=== PATIENT | female | born 1945 | race Caucasian/White ===

== ENCOUNTER 2021-08-30 10:03 | Outpatient (CLI) | payer MEDICARE, BC | END 2021-08-30 10:04 | disposition home or self-care (01) | LOC: CSHCT 10:03 | PROVIDERS: ATTEND Orthopaedic Surgery | DX: M25.432 Effusion, left wrist (principal); M18.12 Unilateral primary osteoarthritis of first carpometacarpal joint, left hand; M79.89 Other specified soft tissue disorders | CPT/HCPCS: 82565 ==

== ENCOUNTER 2022-08-21 13:45 | Outpatient (CLI) | payer MEDICARE, BC | END 2022-08-21 13:46 | disposition home or self-care (01) | LOC: CSHMRI 13:45 | PROVIDERS: ATTEND Anesthesiology Pain Medicine | DX: M48.062 Spinal stenosis, lumbar region with neurogenic claudication (principal); M47.816 Spondylosis without myelopathy or radiculopathy, lumbar region; M47.817 Spondylosis without myelopathy or radiculopathy, lumbosacral region; M51.36 Other intervertebral disc degeneration, lumbar region; M51.37 Other intervertebral disc degeneration, lumbosacral region | CPT/HCPCS: 72148 ==

== ENCOUNTER 2023-04-30 16:45 | Inpatient (IN) | payer MEDICARE, BC ==
[~2023-04-30 16:45] MED LIST: Iopamidol 370 76% 100 ML VIAL ONE
[2023-04-30 17:33] LABS: Bilirubin Neg (Negative); Blood, Urine 25 (Negative); Clarity Slightly Cloudy (Clear); Glucose, Urine (Dipstick) Normal (Negative); Ketone, Urine Negative (Negative); Leukocyte 500 (Negative); Nitrite Negative (Negative); Protein, Urine (Dipstick) 30 mg/dl (Neg-Trace); Urobilinogen Normal mg/dL (Less than 2); pH, Urine 6.5 (5.0-9.0)
[2023-04-30] MEDS ORDERED: Acetaminophen 500 MG TAB ONE (17:33)
[2023-04-30] MEDS ORDERED: cefTRIAXone (ROCEPHIN) 2 GM VIAL ONE (17:34)
[2023-04-30] MEDS ORDERED: Azithromycin 500 MG VIAL ONE (17:34)
[2023-04-30 17:44] LABS: Bacteria/HPF 3+ HPF (None Seen); CAUTI Indications for Culture Fever or rigors; RBC/HPF 0-3 HPF (0-3); Squamous Epithelial 0-3 HPF (0-3); WBC/HPF 21-50 HPF (0-3)
[2023-04-30 17:46] LABS: Urine Culture Reflex Yes Yes
[2023-04-30 17:49] LABS: ALT (SGPT) 17 U/L (8-55); AST (SGOT) 19 U/L (5-34); Alkaline Phosphatase 87 U/L (40-110); Anion Gap 18 mmol/L (10-20); BUN (Urea Nitrogen) 13 mg/dL (9.8-20.1); Bilirubin, Total 0.7 mg/dL (0.2-1.2); Calc. Creatinine Clearance 0 mL/min (70-130); Calcium 10.2 mg/dL (7.8-10.44); Carbon Dioxide 23 mmol/L (23-31); Chloride 95 mmol/L (98-107); Estimated GFR 61; Globulin 2.8 g/dL (2.4-3.5); Glucose 128 mg/dL (83-110); Magnesium 1.6 mg/dL (1.6-2.6); Potassium 4.2 mmol/L (3.5-5.1); Protein, Total 6.8 g/dL (5.8-8.1); Sodium 132 mmol/L (136-145)
[2023-04-30 17:49] LABS: #Eosinphils 0.1 10x3/uL (0.0-0.5); #Monocytes 0.9 10x3/uL (0.0-1.1); #Neutrophils 11.5 10x3/uL (1.5-8.4); %Basophils 0.2 % (0.0-2.0); %Eosinophils 0.6 % (0.0-6.0); %Lymphocytes 5.5 % (18.0-47.0); Hemoglobin 12.8 g/dL (12.0-15.5); Mean Corpuscular HGB CONC 34.6 g/dL (32.0-36.0); Mean Corpuscular Hemoglobin 34.1 pg (27.0-33.0); Mean Corpuscular Volume 98.7 fl (81.6-98.3); Platelet Count 186 10x3/uL (150-450); RBC Distribution Width 11.6 % (11.5-14.5); Red Blood Cell (RBC) Count 3.75 10x6/uL (3.90-5.03); White Blood Cell (WBC) Count 12.9 10x3/uL (3.5-10.5)
[2023-04-30] MEDS ORDERED: Aspirin Chewable 81 MG TAB ONE (18:34)
[2023-04-30 18:55] LABS: SARS-CoV-2 NAA Rapid Test Not Detected (NotDetected)
[2023-04-30] MEDS ORDERED: HYDROcodone/Acetaminophen 5/325 mg Tablet PO PRN (19:12)
[2023-04-30] MEDS ORDERED: Calcium Carbonate 500 MG ChewTAB PO PRN (19:12)
[2023-04-30] MEDS ORDERED: Senokot S 8.6-50 MG TAB PO PRN (19:12)
[2023-04-30] MEDS ORDERED: Guaifenesin DM 100-10/5 ML UDCUP PO PRN (19:12)
[2023-04-30] MEDS ORDERED: Ondansetron PF 4 MG/2 ML Vial IVP PRN (19:12)
[2023-04-30] MEDS ORDERED: QUEtiapine 25 MG TAB ONE (21:32)
[2023-04-30] MEDS ORDERED: QUEtiapine 25 MG TAB PO SCH (22:00)
[2023-04-30] MEDS ORDERED: Simvastatin 10 MG TAB PO SCH (22:00)
[2023-04-30] MEDS ORDERED: Amitriptyline HCl 25 MG TAB PO SCH (22:00)
[2023-04-30] MEDS ORDERED: Pregabalin 25 MG CAP PO SCH (22:00)
[2023-04-30] MEDS ORDERED: Ventolin HFA Inhaler 60 PUFF INHALER INH PRN (22:07)
[2023-05-01] MEDS ORDERED: Lorazepam 2 MG/ML VIAL ONE (01:54)
[2023-05-01] MEDS ORDERED: Lorazepam 2 MG/ML VIAL SLOW IVP SCH ×2 (02:15→23:45)
[2023-05-01 04:13] LABS: #Monocytes 1.3 10x3/uL (0.0-1.1); #Neutrophils 13.4 10x3/uL (1.5-8.4); %Basophils 0.1 % (0.0-2.0); %Eosinophils 0.2 % (0.0-6.0); %Lymphocytes 6.2 % (18.0-47.0); %Neutrophils 84.7 % (40.0-75.0); Hemoglobin 11.6 g/dL (12.0-15.5); Mean Corpuscular HGB CONC 32.6 g/dL (32.0-36.0); Mean Corpuscular Hemoglobin 33.6 pg (27.0-33.0); Mean Corpuscular Volume 103.2 fl (81.6-98.3); Mean Platelet Volume 9.1 fl (7.4-10.4); Platelet Count 160 10x3/uL (150-450); RBC Distribution Width 11.7 % (11.5-14.5); Red Blood Cell (RBC) Count 3.45 10x6/uL (3.90-5.03); White Blood Cell (WBC) Count 15.9 10x3/uL (3.5-10.5)
[2023-05-01 04:28] LABS: Anion Gap 15 mmol/L (10-20); BUN (Urea Nitrogen) 13 mg/dL (9.8-20.1); Calc. Creatinine Clearance 84 mL/min (70-130); Carbon Dioxide 24 mmol/L (23-31); Chloride 98 mmol/L (98-107); Estimated GFR 60; Glucose 111 mg/dL (83-110); Potassium 4.5 mmol/L (3.5-5.1); Sodium 132 mmol/L (136-145)
[2023-05-01] MEDS ORDERED: Ziprasidone 20 MG VIAL ONE (05:46)
[2023-05-01] MEDS ORDERED: Sterile Water 10 ML ONE (05:48)
[2023-05-01] MEDS ORDERED: Ziprasidone 20 MG VIAL IM SCH (06:00)
[2023-05-01] MEDS: Mometasone/Formoterol 200/5 60 PUFF INH SCH ×2 (10:27→21:42)
[2023-05-01] MEDS: Pregabalin 25 MG CAP PO SCH ×2 (11:15→20:04)
[2023-05-01] MEDS: Acetaminophen 325 MG TAB PO PRN ×2 (11:16→22:16)
[2023-05-01] MEDS: QUEtiapine 25 MG TAB PO SCH ×2 (11:16→20:05)
[2023-05-01] MEDS: Montelukast Sodium 10 mg Tablet PO SCH (11:17)
[2023-05-01 12:08] LABS: ALV-art Gradient 26.595 mmHg (0-20); Actual Bicarbonate (HCO3a) 27.8 mEq/L (22-28); Base Excess (BEa) 2.2 mEq/L (-2.0 to +3.0); CO2 Tension 47.3 mmHg (35.0-45.0); Calcium, Ionized (arterial) 1.28 mmol/L (1.12-1.30); Carboxyhemoglobin (COHb) 0.4 gm% (0.0-3.0); Hematocrit-ABG 38 % (36.0-47.0); Hemoglobin (Hb) 12.9 g/dL (12.0-16.0); O2 Tension (PaO2), arterial 85.4 mmHg (> 60.0); Potassium - ABG Lab 4.14 mmol/L (3.70-5.30); Puncture Site RRA; pH, Arterial 7.387 (7.35-7.45)
[2023-05-01] MEDS: Atenolol 50 MG TAB PO SCH (16:00)
[2023-05-01] MEDS: cefTRIAXone\\ROCEPHIN 1 GM in Sodium Chloride 0.9% 100 ML IVPB SCH (17:10)
[2023-05-01] MEDS: Amitriptyline HCl 25 MG TAB PO SCH (20:05)
[2023-05-01] MEDS: Simvastatin 10 MG TAB PO SCH (20:05)
[2023-05-01] MEDS ORDERED: QUEtiapine 25 MG TAB PO SCH (21:00)
[2023-05-02] MEDS: Pregabalin 25 MG CAP PO SCH ×2 (09:01→20:58)
[2023-05-02] MEDS: QUEtiapine 25 MG TAB PO SCH ×2 (09:01→20:59)
[2023-05-02] MEDS: Atenolol 50 MG TAB PO SCH (09:01)
[2023-05-02] MEDS: Montelukast Sodium 10 mg Tablet PO SCH (09:01)
[2023-05-02] MEDS: Mometasone/Formoterol 200/5 60 PUFF INH SCH ×2 (10:50→19:24)
[2023-05-02] MEDS: cefTRIAXone\\ROCEPHIN 1 GM in Sodium Chloride 0.9% 100 ML IVPB SCH (16:57)
[2023-05-02] MEDS: Artificial Tear Sol 15 ML BOT EA EYE SCH ×2 (16:58→21:02)
[2023-05-02] MEDS: Simvastatin 10 MG TAB PO SCH (20:59)
[2023-05-02] MEDS: Amitriptyline HCl 25 MG TAB PO SCH (20:59)
[2023-05-03 05:54] LABS: #Eosinphils 0.1 10x3/uL (0.0-0.5); #Monocytes 0.8 10x3/uL (0.0-1.1); #Neutrophils 8.3 10x3/uL (1.5-8.4); %Basophils 0.4 % (0.0-2.0); %Lymphocytes 16.4 % (18.0-47.0); %Monocytes 7.5 % (0.0-10.0); Hemoglobin 11.6 g/dL (12.0-15.5); Mean Corpuscular HGB CONC 33.6 g/dL (32.0-36.0); Mean Corpuscular Hemoglobin 33.9 pg (27.0-33.0); Mean Corpuscular Volume 100.9 fl (81.6-98.3); Mean Platelet Volume 9.3 fl (7.4-10.4); Platelet Count 186 10x3/uL (150-450); RBC Distribution Width 11.5 % (11.5-14.5); Red Blood Cell (RBC) Count 3.42 10x6/uL (3.90-5.03); White Blood Cell (WBC) Count 11.2 10x3/uL (3.5-10.5)
[2023-05-03 06:07] LABS: Anion Gap 14 mmol/L (10-20); BUN (Urea Nitrogen) 11 mg/dL (9.8-20.1); Calc. Creatinine Clearance 107 mL/min (70-130); Calcium 9.8 mg/dL (7.8-10.44); Carbon Dioxide 25 mmol/L (23-31); Chloride 99 mmol/L (98-107); Estimated GFR 80; Glucose 89 mg/dL (83-110); Potassium 4.3 mmol/L (3.5-5.1); Sodium 134 mmol/L (136-145)
[2023-05-03] MEDS ORDERED: Folic Acid 1 MG TAB PO SCH (09:00)
[2023-05-03 10:00] VITALS: BP 173/81; TEMP 98.4
[2023-05-03] MEDS: Mometasone/Formoterol 200/5 60 PUFF INH SCH (10:10)
[2023-05-03] MEDS: Pregabalin 25 MG CAP PO SCH (10:26)
[2023-05-03] MEDS: Montelukast Sodium 10 mg Tablet PO SCH (10:26)
[2023-05-03] MEDS: Atenolol 50 MG TAB PO SCH (10:26)
[2023-05-03] MEDS: Artificial Tear Sol 15 ML BOT EA EYE SCH (10:35)
[2023-05-03] MEDS ORDERED: Sulfameth/Trimethoprim DS 800-160mg TAB PO SCH ×2 (11:00→21:00)
[2023-05-03] MEDS ORDERED: QUEtiapine 25 MG TAB PO SCH (21:00)
== END 2023-05-03 14:15 | DRG 871 ==
LOC: CSHERS 16:45 → CSHERHOLD 21:01 → CSHTELE 05-01 08:58
PROVIDERS: ADMIT Family Medicine; ATTEND Internal Medicine
PROC: 3E03329 Introduction of Other Anti-infective into Peripheral Vein, Percutaneous Approach (ICD-10-PCS; 2023-04-30)
PROC: 4A033R1 Measurement of Arterial Saturation, Peripheral, Percutaneous Approach (ICD-10-PCS; principal; 2023-05-01)
DX: A41.9 Sepsis, unspecified organism (principal); J96.01 Acute respiratory failure with hypoxia; Z68.42 Body mass index [BMI] 45.0-49.9, adult; E87.1 Hypo-osmolality and hyponatremia; N30.00 Acute cystitis without hematuria; E66.2 Morbid (severe) obesity with alveolar hypoventilation; J45.909 Unspecified asthma, uncomplicated; I10 Essential (primary) hypertension; F41.9 Anxiety disorder, unspecified; F32.A Depression, unspecified; G47.00 Insomnia, unspecified; Z96.619 Presence of unspecified artificial shoulder joint; M48.061 Spinal stenosis, lumbar region without neurogenic claudication; M47.816 Spondylosis without myelopathy or radiculopathy, lumbar region; E78.00 Pure hypercholesterolemia, unspecified; R53.81 Other malaise; Z20.822 Contact with and (suspected) exposure to COVID-19; Z79.51 Long term (current) use of inhaled steroids; Z88.0 Allergy status to penicillin; Z79.899 Other long term (current) drug therapy; Z98.890 Other specified postprocedural states
CPT/HCPCS: 36415; 36600; 51701; 71045; 71275; 80048; 80053; 81001; 82805; 83605; 83735; 83880; 84443; 84484; 85025; 87040; 87077; 87086; 87186; 93005; 93306; 94760; 94762; 96374; 96375; J0456; J0696; J1650; J2060; J3486; J3490; Q9967